=== PATIENT | male | born 1940 | race Caucasian/White ===

== ENCOUNTER → 2018-07-29 10:51 | Outpatient (CLI) | payer MEDICARE, BC ==
[2015-04-03 12:49] VITALS: BMI 25.1
[~2018-07-29 10:51] MED LIST: ASPIRIN EC81 M1 PO; CATAPRES0.1 MG PO; FLAGYL 500500 MG/100 PO; FLAGYL500 MG PO; HYDROCHLOROTHIA25 MG PO; HYDROCODONE-APA1 TAB PO; LEVAQUIN PREMI750 MG PO; LEVAQUIN500 MG PO; MAGNESIUM OXID250 MG PO; PREVACID30 MG PO; PROSCAR5 MG PO; RYTHMOL225 MG PO; VIAGRA25 MG PO
--- NOTE | 2018-07-31 09:40 | EC ---
PATIENT:MICHAEL SOTELO DATE OF SERVICE: 07/29/18 SEX: M MEDICAL RECORD: [id number] DATE OF : 42 LOCATION:[facility] AGE OF PATIENT: 78 ADMISSION DATE: 07/29/18 REFERRING PHYSICIAN: INTERPRETING PHYSICIAN: LELO TIJERINA MD ECHOCARDIOGRAM REPORT ECHO CHARGES 4 ECHO COMPLETE Date: 07/29/18 CLINICAL DIAGNOSIS: H/O A-FLUTTER/HTN/PACEMAKER PLACEMENT ECHOCARDIOGRAPHIC MEASUREMENTS (adult normal given) AC root (d.<3.7cm) 3.2 cm LV Septum d (<1.2 cm> 1.2 cm Valve Excursion 2.0 cm LV Septum (systole) 1.5 cm Left Atria (s.<4.0cm> 3.9 cm LVPW d(<1.2cm) 1.2 cm RV (d.<2.3cm) 3.5 cm LVPW (sytole) 1.6 cm LV diastole(<5.6CM) 5.4 cm MV E-F(>70mm/sec) cm LV systole 3.2 cm LVOT Diameter 1.9 cm MV exc.(>10mm) cm Est.ejection fraction (50-75%) % DOPPLER: LVIT cm/sec A 56.0 cm/sec E 109 cm/sec LA cm/sec RVSP 52.0 mmHg LVOT 121 cm/sec AOP1/2T m/s Asc. Ao 134 cm/sec RVOT 52.0 cm/sec RA cm/sec PA 920 cm/sec AV Gradient Peak 7.2 mmHg AV Mean 4.2 mmHg AV Area 2.3 cm MV Gradient Peak 4.6 mmHg MV Mean 1.4 mmHg MV Area cm COMMENTS: OP - HC Wire Spiral Binder: 1 KENDY EULOGIO Clinical Laboratory Director: 1 Dr. Tijerina TAPE# PACS Pericardial Effusion N DATE OF SERVICE: FINDINGS: 1. Left ventricular chamber size is within normal limits. Left ventricular systolic function is normal. Overall ejection fraction estimated at 55%. 2. Left atrium is within normal limits at 3.9 cm. Right atrium and right ventricle chamber sizes are mildly dilated. 3. Valvular structures have normal structure and motion. 4. Doppler interrogation reveals mild mitral regurgitation, moderate severe tricuspid regurgitation, no other valvular insufficiency or stenosis. Pulmonary ECHOCARDIOGRAM REPORT [id number] ASHLEIGH,MICHAEL MARY systolic pressure is elevated estimated at 52 mmHg. 5. No evidence of pericardial effusion or left ventricular thrombus. TRANSINT:[id number] Voice Confirmation ID: [id number] DOCUMENT ID: [id number] LELO TIJERINA MD at 0940 CC: [id number] DICTATION DATE: 07/29/18 1558 BLOCK CAPTAIN: 07/30/18 0125 DEP CLI 07/29/18 [place] [id number] [place] [id number]
== END | disposition home or self-care (01) ==
LOC: D.HCCARDIO 10:51
PROVIDERS: ATTEND Internal Medicine Interventional Cardiology
DX: I48.0 Paroxysmal atrial fibrillation (principal)

== ENCOUNTER → 2018-11-19 13:27 | Outpatient (CLI) | payer MEDICARE, BC ==
[2015-04-03 12:49] VITALS: BMI 25.1
[2018-11-20 10:11] LABS: SCLERODERMA AB (SCL-70) <0.2 AI (0.0-0.9)
[2018-11-24 15:10] LABS: ANCA - ANTIMYELOPEROXIDASE 9.4 U/mL (0.0-9.0); ANCA - ANTIPROTEINASE 3 8.6 U/mL (0.0-3.5); ANCA - ATYPICAL <1:20 titer (Neg:<1:20); ANCA - CYTOPLASMIC <1:20 titer (Neg:<1:20); ANCA - PERINUCLEAR <1:20 titer (Neg:<1:20)
[2018-11-27 21:06] LABS: CYCLIC CITRULL PEPTIDE IGG/IGA 18 units (0-19)
== END | disposition home or self-care (01) ==
LOC: D.RT 11-04 11:00 → D.LAB 11-04 11:45 → D.RT 11-06 11:00
PROVIDERS: ATTEND Internal Medicine Pulmonary Disease
DX: I27.20 Pulmonary hypertension, unspecified (principal)

== ENCOUNTER → 2018-12-28 13:38 | Outpatient (CLI) | payer MEDICARE, BC ==
[2015-04-03 12:49] VITALS: BMI 25.1
--- NOTE | 2018-12-30 10:41 | EC ---
PATIENT:MICHAEL SOTELO DATE OF SERVICE: 12/28/18 SEX: M MEDICAL RECORD: [id number] DATE OF : 42 LOCATION[facility] AGE OF PATIENT: 78 ADMISSION DATE: 12/28/18 REFERRING PHYSICIAN: INTERPRETING PHYSICIAN: LELO TIJERINA MD ECHOCARDIOGRAM REPORT ECHO CHARGES 4 ECHO COMPLETE Date: 12/28/18 CLINICAL DIAGNOSIS: PULMONARY HTN H/O A-FIB/HTN ECHOCARDIOGRAPHIC MEASUREMENTS (adult normal given) AC root (d.<3.7cm) 3.3 cm LV Septum d (<1.2 cm> 1.2 cm Valve Excursion 2.0 cm LV Septum (systole) 1.6 cm Left Atria (s.<4.0cm> 4.0 cm LVPW d(<1.2cm) 1.3 cm RV (d.<2.3cm) 3.4 cm LVPW (sytole) 1.8 cm LV diastole(<5.6CM) 6.0 cm MV E-F(>70mm/sec) cm LV systole 3.5 cm LVOT Diameter 2.0 cm MV exc.(>10mm) cm Est.ejection fraction (50-75%) % DOPPLER: LVIT cm/sec A 71.0 cm/sec E 88.0 cm/sec LA cm/sec RVSP 49.3 mmHg LVOT 131 cm/sec AOP1/2T m/s Asc. Ao 129 cm/sec RVOT 35.0 cm/sec RA cm/sec PA 80.0 cm/sec AV Gradient Peak 6.6 mmHg AV Mean 3.3 mmHg AV Area 3.0 cm MV Gradient Peak 4.2 mmHg MV Mean 1.5 mmHg MV Area cm COMMENTS: OP - HC Director Of Occupational Therapy: 1 KENDY EULOGIO Infection Control Practitioner: 1 Dr. Tijerina TAPE# PACS Pericardial Effusion N DATE OF SERVICE: FINDINGS: 1. Left ventricular chamber size is mildly dilated. Left ventricular systolic function is preserved at 55%. 2. Left atrium, right atrium, and right ventricular chamber sizes are mildly dilated. Left atrium measures 4.0 cm. 3. Valvular structures have normal structure and motion. 4. Doppler interrogation reveals mild mitral regurgitation, moderate tricuspid regurgitation, no other valvular insufficiency or stenosis. Pulmonary systolic ECHOCARDIOGRAM REPORT [id number] MICHAEL SOTELO pressure is estimated at 50 mmHg. 5. No evidence of pericardial effusion or left ventricular thrombus. TRANSINT:[id number] Voice Confirmation ID: [id number] DOCUMENT ID: [id number] LELO TIJERINA MD at 1041 CC: [id number] DICTATION DATE: 12/28/18 1638 SENIOR SOFTWARE SYSTEMS ENGINEER: 12/28/18 190 DEP CLI 12/28/18 [place] [id number] [place] [id number]
== END | disposition home or self-care (01) ==
LOC: D.HCCECHO 13:30
PROVIDERS: ATTEND Internal Medicine Interventional Cardiology
DX: I10 Essential (primary) hypertension (principal)

== ENCOUNTER → 2020-08-10 10:06 | Outpatient (CLI) | payer MEDICARE, BC ==
[2015-04-03 12:49] VITALS: BMI 25.1
== END | disposition home or self-care (01) ==
LOC: D.LAB 10:06
PROVIDERS: ATTEND Nurse Practitioner Family
DX: R06.00 Dyspnea, unspecified (principal); Z11.52 Encounter for screening for COVID-19

== ENCOUNTER → 2020-08-15 09:35 | Outpatient (CLI) | payer MEDICARE, BC ==
[2015-04-03 12:49] VITALS: BMI 25.1
== END | disposition home or self-care (01) ==
LOC: D.RT 08-07 10:00
PROVIDERS: ATTEND Nurse Practitioner Family
DX: R06.00 Dyspnea, unspecified (principal)